=== PATIENT | male | born 1945 | race Caucasian/White ===

== ENCOUNTER 2017-12-21 09:19 | Inpatient (IN) | payer MEDICARE ==
[~2017-12-21] VITALS: Ht 182.9 cm; Wt 110.0 kg
[~2017-12-21 09:19] MED LIST: AMLO5TAB4 PO; CITA-278 PO; GABA-532 PO; GABA600T2 PO; HYDR-3686 PO; LOSA25TA96 PO; MIRT15TA8 PO; MULT-1179 PO; OMEG1CAP PO; POLY119P2 PO; TRAZ-146 PO; TRIA1CAP6 PO; ZOLP5TAB8 PO
[2017-12-21 12:00] LABS: BASOPHILS % (AUTO) 0.2 % (0-1); EOSINOPHILS # (AUTO) 0.1 X10'3 (0-0.9); EOSINOPHILS % (AUTO) 0.9 % (0-6); HEMATOCRIT 39.4 % (42.0-52.0); HEMOGLOBIN 13.8 g/dl (14.0-17.9); LYMPHOCYTES # (AUTO) 1.1 X10'3 (1.1-4.8); LYMPHOCYTES % (AUTO) 15.3 % (21-51); MEAN CORPUSCULAR HEMOGLOBIN 33.8 PG (27.0-31.0); MEAN CORPUSCULAR HGB CONC 35.2 % (33.0-36.5); MEAN PLATELET VOLUME 6.5 FL (7.4-10.4); MONOCYTES # (AUTO) 0.6 X10'3 (0-0.9); MONOCYTES % (AUTO) 8.5 % (2-12); NEUTROPHILS # (AUTO) 5.2 X10'3 (1.8-7.7); NEUTROPHILS % (AUTO) 75.1 % (42-75); PLATELET COUNT 172 X10'3 (140-440); RED CELL DISTRIBUTION WIDTH 12.8 % (11.5-14.5); WHITE BLOOD COUNT 6.9 X10'3 (4.5-11.0)
[2017-12-21 12:18] LABS: ALANINE AMINOTRANSFERASE 69 U/L (12-78); ALBUMIN 3.6 G/DL (3.4-5.0); ALBUMIN/GLOBULIN RATIO 0.8 (1.1-1.5); ALKALINE PHOSPHATASE 118 IU/L (46-116); ANION GAP 6 (8-16); ASPARTATE AMINO TRANSFERASE 45 U/L (10-37); BLOOD UREA NITROGEN 17 MG/DL (7-18); BUN/CREATININE RATIO 17.5 (5.4-32.0); CALCIUM 9.8 MG/DL (8.5-10.1); CHLORIDE 99 MMOL/L (99-107); CREATININE 0.97 MG/DL (0.60-1.10); GLUCOSE 136 MG/DL (70-104); POTASSIUM 3.7 MMOL/L (3.5-5.1); SODIUM 137 MMOL/L (135-145); TOTAL CARBON DIOXIDE 31.6 MMOL/L (24-32); TOTAL PROTEIN 7.9 G/DL (6.4-8.2); eGFR 76 ML/MIN
[2017-12-21] MEDS ORDERED: morphine 4 MG/ML inj SYRINge IV PRN (14:50)
[2017-12-21] MEDS ORDERED: magnesium hydroxide 30ml (MOM) UD suspension PO PRN (14:50)
[2017-12-21] MEDS ORDERED: mag hydrox/Alum hydrox/simeth 30ml oral suspension PO PRN (14:50)
[2017-12-21] MEDS ORDERED: bisacodyl 10mg suppository rectal RC PRN (14:50)
[2017-12-21] MEDS ORDERED: vancomycin/NS 1 GM ADD-VANTAGE 250 ML IV ONE (14:50)
[2017-12-21] MEDS ORDERED: acetaminophen 325mg tablet PO PRN (14:50)
[2017-12-21 14:55] LABS: C-REACTIVE PROTEIN 14.83 MG/DL (0.0-0.5)
[2017-12-21] MEDS ORDERED: iohexol 300mg/ml 100ml inj. ONE (14:55)
[2017-12-21] MEDS: piperacillin/tazo 3.375gm/50ml 50 ML IV SCH ×2 (16:37→20:59)
[2017-12-21] MEDS: sodium chloride 0.45% 1,000 ML IV SCH (17:26)
[2017-12-21] MEDS ORDERED: hydrOXYzine 25 MG tablet PO PRN (18:55)
[2017-12-21] MEDS ORDERED: zolpidem 5mg tablet PO PRN (18:55)
[2017-12-21] MEDS: naproxen sodium 220mg tablet PO SCH (20:00)
[2017-12-21] MEDS: docusate sod 100mg capsule PO SCH (20:59)
[2017-12-21] MEDS: omega-3 acid ethyl esters 1GM capsule PO SCH (20:59)
[2017-12-21] MEDS ORDERED: traZODone 50mg tablet PO SCH (21:00)
[2017-12-21] MEDS ORDERED: mirtazapine 15mg tablet PO SCH (21:00)
[2017-12-21] MEDS ORDERED: gabapentin 400mg capsule PO SCH (21:00)
[2017-12-21] MEDS: heparin, porcine 5000 units/ml vial SQ SCH (21:01)
[2017-12-21 22:00] VITALS: BP 144/74
[2017-12-22] MEDS: piperacillin/tazo 3.375gm/50ml 50 ML IV SCH ×3 (01:29→14:34)
[2017-12-22 06:00] VITALS: BP 122/70
[2017-12-22 07:23] LABS: BASOPHILS % (AUTO) 0.2 % (0-1); EOSINOPHILS # (AUTO) 0.1 X10'3 (0-0.9); EOSINOPHILS % (AUTO) 1.8 % (0-6); HEMATOCRIT 36.8 % (42.0-52.0); HEMOGLOBIN 12.7 g/dl (14.0-17.9); LYMPHOCYTES # (AUTO) 1.4 X10'3 (1.1-4.8); LYMPHOCYTES % (AUTO) 26.7 % (21-51); MEAN CORPUSCULAR HEMOGLOBIN 33.4 PG (27.0-31.0); MEAN CORPUSCULAR HGB CONC 34.6 % (33.0-36.5); MEAN CORPUSCULAR VOLUME 96.5 FL (78-98); MEAN PLATELET VOLUME 6.7 FL (7.4-10.4); MONOCYTES # (AUTO) 0.5 X10'3 (0-0.9); MONOCYTES % (AUTO) 10.4 % (2-12); NEUTROPHILS # (AUTO) 3.1 X10'3 (1.8-7.7); NEUTROPHILS % (AUTO) 60.9 % (42-75); PLATELET COUNT 151 X10'3 (140-440); RED BLOOD COUNT 3.81 X10'6 (4.70-6.10); RED CELL DISTRIBUTION WIDTH 12.7 % (11.5-14.5); WHITE BLOOD COUNT 5.1 X10'3 (4.5-11.0)
[2017-12-22] MEDS: naproxen sodium 220mg tablet PO SCH (07:56)
[2017-12-22 08:00] VITALS: BP 124/75
[2017-12-22] MEDS ORDERED: triamterene/HCTZ 37.5/25mg tablet PO SCH (08:00)
[2017-12-22] MEDS ORDERED: polyethylene glycol 3350 17gm powd pack PO SCH (08:00)
[2017-12-22] MEDS ORDERED: multivitamins, therapeutics tablet PO SCH (08:00)
[2017-12-22] MEDS ORDERED: citalopram 20mg tablet PO SCH (08:00)
[2017-12-22] MEDS ORDERED: losartan 25mg tablet PO SCH (08:00)
[2017-12-22] MEDS ORDERED: amLODIPine 5mg tablet PO SCH (08:00)
[2017-12-22] MEDS: gabapentin 300mg capsule PO SCH ×2 (08:01→14:34)
[2017-12-22] MEDS: docusate sod 100mg capsule PO SCH (08:02)
[2017-12-22] MEDS: omega-3 acid ethyl esters 1GM capsule PO SCH (08:02)
[2017-12-22] MEDS: heparin, porcine 5000 units/ml vial SQ SCH (08:03)
[2017-12-22 08:58] LABS: ANION GAP 8 (8-16); BILIRUBIN,TOTAL 1.2 MG/DL (0.1-1.0); BLOOD UREA NITROGEN 15 MG/DL (7-18); BUN/CREATININE RATIO 16.1 (5.4-32.0); CHLORIDE 103 MMOL/L (99-107); CREATININE 0.93 MG/DL (0.60-1.10); GLUCOSE 138 MG/DL (70-104); POTASSIUM 3.5 MMOL/L (3.5-5.1); SODIUM 139 MMOL/L (135-145); TOTAL CARBON DIOXIDE 28.2 MMOL/L (24-32); eGFR 80 ML/MIN
[2017-12-22 08:59] LABS: ALANINE AMINOTRANSFERASE 76 U/L (12-78); ALBUMIN 2.9 G/DL (3.4-5.0); ALBUMIN/GLOBULIN RATIO 0.8 (1.1-1.5); ALKALINE PHOSPHATASE 117 IU/L (46-116); ASPARTATE AMINO TRANSFERASE 43 U/L (10-37); TOTAL PROTEIN 6.7 G/DL (6.4-8.2)
[2017-12-22 10:00] VITALS: BP 103/63
[2017-12-22] MEDS: sodium chloride 0.45% 1,000 ML IV SCH (10:48)
[2017-12-22] MEDS ORDERED: naproxen 375mg tablet PO SCH (13:58)
[2017-12-22] MEDS ORDERED: AMOX-422 PO (15:41)
[2017-12-22] MEDS ORDERED: [UNRECOGNIZED DRUG - CODE] PO (15:51)
[2017-12-22] MEDS ORDERED: thiamine 100mg tablet PO SCH (20:00)
[2017-12-22] MEDS ORDERED: lactobacillus rhamnosus 10,000 MMU CELLS/CAPSULE PO SCH (20:00)
[2017-12-23] MEDS ORDERED: VANCOMYCIN LEVEL IV NR (03:30)
== END 2017-12-22 16:20 | disposition home or self-care (01) | DRG 558 ==
LOC: ER 09:20 → ED HOLD 14:48 → ORTHO 4S 19:15
PROVIDERS: ADMIT Emergency Medicine; ATTEND Emergency Medicine
PROC: BP2 Imaging, Non-Axial Upper Bones, Computerized Tomography (CT Scan) (ICD-10-PCS; principal; 2017-12-21)
DX: M70.21 Olecranon bursitis, right elbow (principal); L03.113 Cellulitis of right upper limb; F41.9 Anxiety disorder, unspecified; G47.00 Insomnia, unspecified; G89.29 Other chronic pain; M25.421 Effusion, right elbow; I10 Essential (primary) hypertension; N40.0 Benign prostatic hyperplasia without lower urinary tract symptoms; M54.2 Cervicalgia; M54.9 Dorsalgia, unspecified; Z83.3 Family history of diabetes mellitus; Z83.42 Family history of familial hypercholesterolemia; Z79.899 Other long term (current) drug therapy
CPT/HCPCS: 36415; 71045; 73201; 80053; 83605; 84145; 84550; 85025; 85651; 86140; 87040; 87070; 93971; 99285; J1644; J2543; J3370; J7030; Q9967

== ENCOUNTER 2018-01-17 09:11 | Outpatient (CLI) | payer MEDICARE ==
[~2018-01-17 09:11] MED LIST changes: +[UNRECOGNIZED DRUG - CODE] PO
== END 2018-01-17 10:13 | disposition home or self-care (01) ==
LOC: ORTHO 09:11
PROVIDERS: ATTEND Nurse Practitioner Family
DX: M25.822 Other specified joint disorders, left elbow (principal); M77.8 Other enthesopathies, not elsewhere classified; I10 Essential (primary) hypertension; F41.9 Anxiety disorder, unspecified; G89.29 Other chronic pain
CPT/HCPCS: 73070; 73080; 99213; A4565

== ENCOUNTER 2018-01-28 11:31 | Outpatient (CLI) | payer MEDICARE ==
[2018-01-28 11:38] VITALS: BP 132/84
== END 2018-01-28 12:04 | disposition home or self-care (01) ==
LOC: ORTHO 11:31
PROVIDERS: ATTEND Nurse Practitioner Family
DX: M70.21 Olecranon bursitis, right elbow (principal); M25.531 Pain in right wrist; I10 Essential (primary) hypertension; G89.29 Other chronic pain; F41.9 Anxiety disorder, unspecified
CPT/HCPCS: 73110

== ENCOUNTER 2018-02-07 13:45 | Emergency (ER) | payer MEDICARE ==
[~2018-02-07] VITALS: Ht 182.9 cm; Wt 109.0 kg
[2018-02-07 14:04] VITALS: BP 143/80
== END 2018-02-07 14:55 | disposition home or self-care (01) ==
LOC: ER 13:47
DX: M25.561 Pain in right knee (principal); I10 Essential (primary) hypertension; G89.29 Other chronic pain; Z98.890 Other specified postprocedural states; Z79.899 Other long term (current) drug therapy
CPT/HCPCS: 73564; 99284

== ENCOUNTER 2018-02-12 10:12 | Outpatient (CLI) | payer MEDICARE ==
[~2018-02-12] VITALS: Ht 182.9 cm; Wt 110.0 kg
[2018-02-12 10:46] VITALS: BP 127/66
== END 2018-02-12 11:59 | disposition home or self-care (01) ==
LOC: ORTHO 10:12
PROVIDERS: ATTEND Nurse Practitioner Family
DX: M70.21 Olecranon bursitis, right elbow (principal); I10 Essential (primary) hypertension; E78.00 Pure hypercholesterolemia, unspecified; E11.9 Type 2 diabetes mellitus without complications; I73.9 Peripheral vascular disease, unspecified; F10.10 Alcohol abuse, uncomplicated
CPT/HCPCS: 99214

== ENCOUNTER 2018-02-21 09:50 | Outpatient (CLI) | payer MEDICARE ==
[~2018-02-21] VITALS: Ht 182.9 cm; Wt 109.8 kg
[2018-02-21 10:46] LABS: BASOPHILS % (AUTO) 0.5 % (0-1); EOSINOPHILS # (AUTO) 0.1 X10'3 (0-0.9); EOSINOPHILS % (AUTO) 2.5 % (0-6); LYMPHOCYTES # (AUTO) 1.7 X10'3 (1.1-4.8); LYMPHOCYTES % (AUTO) 31.5 % (21-51); MEAN CORPUSCULAR HEMOGLOBIN 32.9 PG (27.0-31.0); MEAN CORPUSCULAR HGB CONC 35.1 % (33.0-36.5); MEAN CORPUSCULAR VOLUME 93.7 FL (78-98); MEAN PLATELET VOLUME 6.5 FL (7.4-10.4); MONOCYTES # (AUTO) 0.4 X10'3 (0-0.9); MONOCYTES % (AUTO) 6.7 % (2-12); NEUTROPHILS # (AUTO) 3.2 X10'3 (1.8-7.7); NEUTROPHILS % (AUTO) 58.8 % (42-75); PRE OP HEMATOCRIT 42.1 % (42.0-52.0); PRE OP HEMOGLOBIN 14.8 g/dL (14.0-17.9); PRE OP PLATELET COUNT 196 X10'3 (140-440); RED BLOOD COUNT 4.49 X10'6 (4.70-6.10); RED CELL DISTRIBUTION WIDTH 13.6 % (11.5-14.5)
[2018-02-21 11:06] LABS: ALBUMIN 3.7 G/DL (3.4-5.0); ALBUMIN/GLOBULIN RATIO 0.9 (1.1-1.5); ALKALINE PHOSPHATASE 116 IU/L (46-116); BLOOD UREA NITROGEN 19 MG/DL (7-18); BUN/CREATININE RATIO 20.9 (5.4-32.0); CALCIUM 9.8 MG/DL (8.5-10.1); CHLORIDE 103 MMOL/L (99-107); CREATININE 0.91 MG/DL (0.60-1.10); PRE OP ALT 78 U/L (30-65); PRE OP ANION GAP 8 (8-16); PRE OP AST 36 U/L (10-37); PRE OP BILIRUB, TOTAL 0.5 MG/DL (0.0-1.0); PRE OP GLUCOSE 195 MG/DL (70-104); PRE OP POTASSIUM 3.7 MMOL/L (3.4-5.1); PRE OP SODIUM 140 MMOL/L (135-145); TOTAL CARBON DIOXIDE 28.8 MMOL/L (24-32); TOTAL PROTEIN 7.8 G/DL (6.4-8.2); eGFR 82 ML/MIN
[2018-02-27] MEDS ORDERED: MULT-1085 PO (09:59)
[2018-02-27] MEDS ORDERED: GABA300C PO ×2 (10:00)
[2018-02-28] MEDS ORDERED: ringers solution, lacted 1,000 ML IV SCH (05:00)
[2018-02-28] MEDS ORDERED: vancomycin inj 1,500 MG in normal saline 300ml IV soln IV ONE (05:30)
[2018-02-28] MEDS ORDERED: famotidine 20mg tablet PO ONE (05:30)
[2018-02-28] MEDS ORDERED: Cefazolin 2GM/50ML dext iso,osmotic IVPB IV ONE (05:30)
== END 2018-02-21 23:59 | disposition home or self-care (01) ==
LOC: PRE-OP 09:50 → EDSTATUS 02-28 11:30
PROVIDERS: ATTEND Orthopaedic Surgery
DX: Z01.810 Encounter for preprocedural cardiovascular examination (principal); M25.721 Osteophyte, right elbow
CPT/HCPCS: 36415; 80053; 83036; 85025; 93005; 93306

== ENCOUNTER 2018-03-12 11:05 | Day surgery (SDC) | payer MEDICARE ==
[~2018-03-12] VITALS: Ht 182.9 cm; Wt 111.1 kg
[2018-03-12] VITALS (10 sets, daily range): BP systolic 103–131; BP diastolic 63–82
[~2018-03-12 11:05] MED LIST changes: +ASPI-611 PO; -CITA-278 PO; +Cefazolin 2GM/50ML dext iso,osmotic IVPB IV ONE; -GABA-532 PO; +GABA300C PO; -GABA600T2 PO; -HYDR-3686 PO; +MIRT15TA PO; -MIRT15TA8 PO; +MULT-1085 PO; -MULT-1179 PO; -POLY119P2 PO; -TRAZ-146 PO; +TRAZ-219 PO; -[UNRECOGNIZED DRUG - CODE] PO; +famotidine 20mg tablet PO ONE; +ringers solution, lacted 1,000 ML IV SCH; +vancomycin inj 1,500 MG in normal saline 300ml IV soln IV ONE
[2018-03-12] MEDS ORDERED: bacitracin 15gm ointment TP ONE (15:35)
[2018-03-12] MEDS ORDERED: sevoflurane 250ml liquid IH ONE (17:08)
[2018-03-12] MEDS ORDERED: midazolam 2 mg/2 ml injection ONE ×2 (17:09→17:10)
[2018-03-12] MEDS ORDERED: fentaNYL/PF 50MCG/1 ML 2ML syringe ONE (17:09)
[2018-03-12] MEDS ORDERED: ceFAZolin 1000mg inj IR ONE (17:50)
[2018-03-12] MEDS ORDERED: ringers solution, lacted 1,000 ML IV SCH (18:04)
[2018-03-12] MEDS ORDERED: proCHLORperazine 10 MG/2 ml inj IV PRN (18:05)
[2018-03-12] MEDS ORDERED: meperidine/PF 25mg/ml syringe IV PRN ×3 (18:05)
[2018-03-12] MEDS ORDERED: morphine 4 MG/ML inj SYRINge IV PRN ×2 (18:05)
[2018-03-12] MEDS ORDERED: ondansetron/PF 4mg/2ml inj IV PRN (18:05)
[2018-03-12] MEDS ORDERED: propofol inj 20 ML IV ONE (18:14)
== END 2018-03-12 19:35 | disposition home or self-care (01) ==
LOC: PAS 11:05
PROVIDERS: ATTEND Orthopaedic Surgery
DX: M70.21 Olecranon bursitis, right elbow (principal); M25.721 Osteophyte, right elbow; M24.021 Loose body in right elbow; G47.33 Obstructive sleep apnea (adult) (pediatric); I10 Essential (primary) hypertension; I49.8 Other specified cardiac arrhythmias; E66.9 Obesity, unspecified; N40.0 Benign prostatic hyperplasia without lower urinary tract symptoms; F41.8 Other specified anxiety disorders; E78.00 Pure hypercholesterolemia, unspecified; F32.9 Major depressive disorder, single episode, unspecified; Z72.89 Other problems related to lifestyle; G89.29 Other chronic pain; Z85.828 Personal history of other malignant neoplasm of skin; Z92.3 Personal history of irradiation; Z87.891 Personal history of nicotine dependence; Z79.82 Long term (current) use of aspirin; Z68.33 Body mass index [BMI] 33.0-33.9, adult; Z79.891 Long term (current) use of opiate analgesic; Z86.79 Personal history of other diseases of the circulatory system; Z79.899 Other long term (current) drug therapy; Z98.890 Other specified postprocedural states; Z83.3 Family history of diabetes mellitus; Z80.9 Family history of malignant neoplasm, unspecified; Z82.49 Family history of ischemic heart disease and other diseases of the circulatory system; Z83.42 Family history of familial hypercholesterolemia
CPT/HCPCS: 24105; 24110; 82948; A6449; J0690; J2250; J2704; J3010; J3370; J7120

== ENCOUNTER → 2018-03-20 | Outpatient (CLI) | payer MEDICARE ==
[~2018-03-20] MED LIST changes: -Cefazolin 2GM/50ML dext iso,osmotic IVPB IV ONE; -famotidine 20mg tablet PO ONE; -ringers solution, lacted 1,000 ML IV SCH; -vancomycin inj 1,500 MG in normal saline 300ml IV soln IV ONE
[2018-03-20 08:54] VITALS: BP 142/75
== END | disposition home or self-care (01) ==
LOC: ORTHO 08:55
PROVIDERS: ATTEND Nurse Practitioner Family
DX: M70.21 Olecranon bursitis, right elbow (principal); G89.29 Other chronic pain; F41.9 Anxiety disorder, unspecified; I10 Essential (primary) hypertension; F10.10 Alcohol abuse, uncomplicated; Z79.82 Long term (current) use of aspirin; Z79.899 Other long term (current) drug therapy; Z85.828 Personal history of other malignant neoplasm of skin; Z85.46 Personal history of malignant neoplasm of prostate
CPT/HCPCS: 73070; 99213; A6449

== ENCOUNTER 2018-03-27 14:56 | Outpatient (CLI) | payer MEDICARE ==
[2018-03-27 14:58] VITALS: BP 151/71
== END 2018-03-27 15:22 | disposition home or self-care (01) ==
LOC: ORTHO 14:56
PROVIDERS: ATTEND Nurse Practitioner Family
DX: M70.21 Olecranon bursitis, right elbow (principal); I10 Essential (primary) hypertension; G89.29 Other chronic pain; F41.9 Anxiety disorder, unspecified; Z85.828 Personal history of other malignant neoplasm of skin; Z79.82 Long term (current) use of aspirin; Z79.899 Other long term (current) drug therapy
CPT/HCPCS: 99214; A6449

== ENCOUNTER 2020-03-03 08:31 | Outpatient (CLI) | payer MEDICARE ==
[~2020-03-03 08:31] MED LIST changes: -TRAZ-219 PO; +TRAZ-256 PO
[2020-03-03] MEDS ORDERED: iohexol 350MG/ML 100ml bottle IV ONE (08:49)
== END 2020-03-03 23:59 | disposition home or self-care (01) ==
LOC: 64 CT 08:31
PROVIDERS: ATTEND Specialist
DX: K76.0 Fatty (change of) liver, not elsewhere classified (principal); N40.0 Benign prostatic hyperplasia without lower urinary tract symptoms; M42.9 Spinal osteochondrosis, unspecified
CPT/HCPCS: 74176; 74177; Q9967

== ENCOUNTER 2022-04-20 12:39 | Emergency (ER) | payer MEDICARE ==
[~2022-04-20] VITALS: Ht 182.9 cm; Wt 104.0 kg
[~2022-04-20 12:39] MED LIST changes: +MIRT-116 PO; -MIRT15TA PO; -OMEG1CAP PO; +OMEG1CAP61 PO; -TRIA1CAP6 PO; +TRIA1CAP88 PO
[2022-04-20 12:45] VITALS: BP 154/85
== END 2022-04-20 14:45 | disposition home or self-care (01) ==
LOC: ER 12:40
DX: U07.1 COVID-19 (principal); E78.00 Pure hypercholesterolemia, unspecified; I10 Essential (primary) hypertension; E11.9 Type 2 diabetes mellitus without complications; Z79.82 Long term (current) use of aspirin; Z79.84 Long term (current) use of oral hypoglycemic drugs; Z79.899 Other long term (current) drug therapy
CPT/HCPCS: 99282